=== PATIENT | female | born 1945 | race Caucasian/White ===

== ENCOUNTER 2018-01-05 05:57 | Inpatient (IN) ==
[2018-01-05] MEDS ORDERED: Metoprolol Tartrate 25 MG Tablet PO SCH (07:15)
[2018-01-05] MEDS ORDERED: Chlorhexidine Gluconate 2% 1 Pack (2 Cloths) TOPICAL SCH (07:15)
[2018-01-05] MEDS ORDERED: Vancomycin Inj 1,000 MG in Sodium Chlor 0.9% Inj 250 ML IV.SIG ONE (07:20)
[2018-01-05] MEDS ORDERED: ceFAZolin 2 GM Premix Inj 2 GM/50 ML PIGGYBACK IV.SIG ONE (07:21)
--- NOTE | 2018-01-05 07:47 | P.PNOP ---
Subjective Interval history: POD 0 s/p ORIF left distal femur Physical Exam Narrative: LLE: dressings clean and dry. itnact. NVI Assessment and Plan - Assessment and Plan 1) Left Distal Femur Fx s/p ORIF - POD 0 -NWB -elevate -daily dressing changes POD 2 -CKS at all times except for PT -PROM 0-90deg. -no leg lifts or quad sets -CM for DC planning. SNF likely -f/u with [facility] or [facility] in 2 weeks -patient currently receiving narcotic pain meds from pain management per [employer] database. Was supplied with a 30 day supply of norco 10 on 01/01/18. Will continue to allow pain management to supply pain meds.
[2018-01-05 07:57] LABS: Baso # (Auto) 0.1 th/mm3 (0.0-0.2); Baso % (Auto) 0.7 % (0.0-2.0); Eos # (Auto) 0.4 th/mm3 (0.0-0.4); Eos % (Auto) 5.3 % (0.0-4.0); Hematocrit 40.9 % (35.0-46.0); Lymph # (Auto) 1.7 th/mm3 (1.0-4.8); Lymph % (Auto) 22.8 % (9.0-44.0); Mean Corpuscular HGB Conc 34.3 % (32.0-36.0); Mean Corpuscular Hemoglobin 31.6 pg (27.0-34.0); Mean Corpuscular Volume 91.9 fL (80.0-100.0); Mean Platelet Volume 7.4 fL (7.0-11.0); Mono # (Auto) 0.4 th/mm3 (0.0-0.9); Mono % (Auto) 5.1 % (0.0-8.0); Neut % (Auto) 66.1 % (16.0-70.0); Platelet Count 269 th/mm3 (150-450); Red Blood Count 4.45 mil/mm3 (4.00-5.30); Red Cell Distribution Width 12.9 % (11.6-17.2); White Blood Count 7.6 th/mm3 (4.0-11.0)
[2018-01-05] MEDS ORDERED: Sodium Chlor 0.9% Inj 500 ML IV.SIG SCH (08:00)
[2018-01-05] MEDS ORDERED: Post-op Orders (for Pharmacy) OTHER STA (09:27)
[2018-01-05] MEDS ORDERED: Morphine Inj 4 MG/ML Vial IV.PUSH PRN (09:27)
--- NOTE | 2018-01-05 09:38 | P.OP ---
- Preoperative Diagnosis (1) Closed fracture of lateral condyle of left femur Date of procedure: 01/05/18 Procedure: Open reduction internal fixation left distal femur lateral condyle fracture Anesthesia: GETA Surgeon: Justice Butterfield MD Mica Miner: MINDY Steen PA-C The surgical procedure was assisted by my physician assistant professor of marine biology. My P.A. presence was necessary throughout this case for the manipulation and positioning of the surgical extremity. My P.A. was assisting me throughout the duration of this procedure. The skill set of a physician assistant professor of marine biology was medically necessary to complete this procedure. During the surgical case the surgical elastic knitter hand frame was working at the back table and the physician assistant professor of marine biology was directly assisting me. Operation and Findings: Implants used: Synthes Plan of activity: Nonweightbearing, passive range of motion of knee Details of procedure: Informed consent was obtained, operative site was marked. Patient was brought to the OR, placed on OR table, and given IV sedation with GETA. IV antibiotics were administered and timeout procedure was performed. The operative leg was prepped with alcohol, followed with Hibiclens, draped in usual sterile fashion. A timeout procedure was performed. The procedure began with a 4-inch incision over the lateral aspect of the distal femur. Subcutaneous tissue was dissected with Bovie. Iliotibial band was split in line with fibers. An arthrotomy was created to allow for visualization of the joint line. At this point the fracture was visualized. Traction was applied. The lateral femoral condyle fracture was manipulated and elevated. Fracture was manipulated and reduced into excellent alignment. Steinmann pins were used to hold provisional fixation. 3.5 cortical lag screws were now placed from anterior to posterior. The screws were countersunk to avoid irritation of the patellofemoral joint. Fluoroscopy confirmed excellent alignment of fracture with well-placed screws. At this point attention was turned to plate placement. A Synthes 3.5 was selected and contoured to fit the femur. The plate was placed underneath the vastus lateralis. Steinmann pins were used to hold the plate to bone. Multiplanar fluoroscopy confirmed appropriate placement of plate. Multiple 3.5 cortical screws were now placed. The plate was compressed to bone. Multiple locking screws were now placed in the distal segment of the distal femur. All screws were predrilled and premeasured for appropriate length. Final fluoroscopy revealed excellent alignment of fracture with well-placed hardware. Wound was thoroughly irrigated. Fascia was closed with #1 Vicryl. Subcutaneous tissue was closed with 3-0 Vicryl. Skin was closed with chary. Sterile dressings were applied. The patient was placed into a knee immobilizer and transferred to recovery in stable condition. Needle and sponge counts were correct.
[2018-01-05] MEDS ORDERED: Morphine Sulfate Inj 8 MG/ML Vial ONE (09:54)
[2018-01-05] MEDS: Ketorolac Inj 30 MG/ML (IVP) Vial IV.PUSH SCH ×2 (10:00→22:46)
[2018-01-05] MEDS ORDERED: *Meperidine Inj 25 MG/ML Vial PERIprocedural Use ONLY ONE (10:05)
[2018-01-05] MEDS ORDERED: fentaNYL Citrate Inj 100 MCG/2 ML Ampul ONE (10:13)
[2018-01-05] MEDS ORDERED: *morphine SULFATE 4 MG/ML PERIprocedure ONLY ONE ×2 (10:31→10:53)
--- NOTE | 2018-01-05 10:59 | ECG ---
Date Performed: 01/05/2018 Time Performed: 07:00:47 PTAGE: 72 years EKG: SINUS BRADYCARDIA BORDERLINE ECG Since the PREVIOUS TRACING , no significant change noted PREVIOUS TRACIN09/10/2014 09.44 DOCTOR: Bud Gilman Interpretating Date/Time 01/05/2018 10:57:13
--- NOTE | 2018-01-05 13:34 | XR ---
EXAM DATE: 01/05/2018 12:33 PM EDT AGE/SEX: 72 years / Female INDICATIONS: ORIF of the left distal femur. CLINICAL DATA: This is the patient's initial encounter. Patient reports that signs and symptoms have been present for 1 day and indicates a pain score of Nonresponsive. MEDICAL/SURGICAL HISTORY: Hypertension. Carcinoma, cervical. Hysterectomy. Appendectomy. Ton sillectomy. COMPARISON: No prior exams available for comparison. FINDINGS: Status post internal fixation of the distal femur. The bony structures appear to be in good alignment . The hardware is grossly intact. CONCLUSION: Good position and alignment on this postoperative study. Electronically signed by: Zay Nevarez MD 01/05/2018 1:32 PM EDT
[2018-01-05] MEDS: Calcium/Vitamin D 250/125 MG Tablet PO SCH ×2 (16:58→17:05)
[2018-01-05] MEDS: ceFAZolin 2 GM Premix Inj 2 GM/100 ML BAG IV.SIG SCH (17:21)
[2018-01-05] MEDS ORDERED: Neostigmine Inj 5 MG/5 ML Syringe IV.PUSH ONE (17:59)
[2018-01-05] MEDS ORDERED: Lidocaine PF 1% Inj 5 ML Syringe INFILTRATN ONE (17:59)
[2018-01-05] MEDS ORDERED: Metoprolol Inj 5 MG/5 ML Vial IV.PUSH ONE (17:59)
[2018-01-05] MEDS ORDERED: Phenylephrine/NS 1000 MCG/10ML Syringe IV.PUSH ONE (17:59)
[2018-01-05] MEDS ORDERED: Glycopyrrolate Inj 1 MG/5 ML Syringe IV.PUSH ONE (17:59)
[2018-01-05] MEDS: Vancomycin Inj 1,000 MG in Sodium Chlor 0.9% Inj 250 ML IV.SIG SCH (22:45)
[2018-01-05] MEDS: Senna/Docusate Sodium 8.6/50 MG Tablet PO SCH (22:46)
[2018-01-06] MEDS: ceFAZolin 2 GM Premix Inj 2 GM/100 ML BAG IV.SIG SCH ×3 (01:09→16:04)
--- NOTE | 2018-01-06 06:35 | P.PNOP ---
Subjective Interval history: POD 1 s/p ORIF left distal femur doing well. pain controlled. no complaints. Physical Exam Vital signs: Vital Signs 01/05/18 07:49 01/05/18 09:47 01/05/18 10:00 Temperature 97.5 F L 97.4 F L Pulse Rate 51 L 87 73 Respiratory Rate 18 22 22 Blood Pressure 121/50 L 121/50 L 151/66 H Pulse Oximetry 97 95 100 01/05/18 10:10 01/05/18 10:15 01/05/18 10:30 Temperature Pulse Rate 69 74 Respiratory Rate 10 L 10 L Blood Pressure 134/63 127/60 Pulse Oximetry 96 100 100 01/05/18 10:45 01/05/18 11:00 01/05/18 11:10 Temperature Pulse Rate 74 72 Respiratory Rate 13 18 Blood Pressure 130/62 127/58 L Pulse Oximetry 100 99 96 01/05/18 11:15 01/05/18 11:30 01/05/18 12:00 Temperature 97.4 F L Pulse Rate 48 L 49 L Respiratory Rate 15 15 Blood Pressure 127/58 L 118/57 L Pulse Oximetry 97 98 94 L 01/05/18 16:00 01/05/18 20:00 01/06/18 00:00 Temperature 97.6 F 97.9 F 98.0 F Pulse Rate 58 L 54 L 69 Respiratory Rate 18 17 17 Blood Pressure 112/56 L 99/49 L 100/51 L Pulse Oximetry 93 L 97 95 01/06/18 04:00 Temperature 98.5 F Pulse Rate 81 Respiratory Rate 17 Blood Pressure 108/53 L Pulse Oximetry 96 Intake & Output 01/05/18 01/05/18 01/06/18 06:59 18:59 06:59 Intake Total 1460 / 1460 1350 / 1350 Output Total 100 / 100 Balance 1360 / 1360 1350 / 1350 Weight 73.6 kg Intake: IV 500 / 500 1350 / 1350 LR 1000 mL Inj 1,000 ML @ 80 1000 / 1000 mls/hr IV.CONT .[id number] DON Rx# :[id number] LR 1000 mL Inj 1,000 ML @ 30 500 / 500 mls/hr IV.SIG .Q24H DON Rx#: [id number] Vancomycin Inj 1,000 MG In NS 250 / 250 Inj 250 ML @ 200 mls/hr IV.SIG Q12H DON Rx#:[id number] Ancef 2 GM Premix Inj 2 gm In 100 / 100 100 ml @ 200 mls/hr IV.SIG Q8H DON Rx#:[id number] Oral 960 / 960 Output: Urine 0 / 0 Estimated Blood Loss 100 / 100 Other: Date of Last Bowel Movement 01/04/18 01/04/18 Weight On Admission 73.6 kg Narrative: LLE: dressings clean and dry. intact. NVI. +CKS Results - Labs CBC & Chem 7: 01/05/18 07:34 Laboratory Results - last 24 hr 01/05/18 07:34 WBC 7.6 RBC 4.45 Hgb 14.0 Hct 40.9 MCV 91.9 MCH 31.6 MCHC 34.3 RDW 12.9 Plt Count 269 MPV 7.4 Neut % (Auto) 66.1 Lymph % (Auto) 22.8 [place] % (Auto) 5.1 Eos % (Auto) 5.3 H Baso % (Auto) 0.7 Neut # (Auto) 5.0 Lymph # (Auto) 1.7 [place] # (Auto) 0.4 Eos # (Auto) 0.4 Baso # (Auto) 0.1 WBC Differential . Differential Comment Auto diff final - Imaging Impressions Femur X-Ray 01/05/18 00:00 CONCLUSION: Good position and alignment on this postoperative study. Assessment and Plan - Assessment and Plan 1) Left Distal Femur Fx s/p ORIF - POD 1 -NWB -elevate -daily dressing changes POD 2 -CKS at all times except for PT -PROM 0-90deg. -no leg lifts or quad sets -CM for DC planning. SNF likely. if doing well with therapy, can consider home with [facility] but will likely need SNF -f/u with [facility] or [facility] in 2 weeks -patient currently receiving narcotic pain meds from pain management per [employer] database. Was supplied with a 30 day supply of norco 10 on 01/01/18. Will continue to allow pain management to supply pain meds.
[2018-01-06 07:09] LABS: Hematocrit 35.9 % (35.0-46.0); Hemoglobin 12.1 gm/dL (11.6-15.3)
[2018-01-06] MEDS: Enoxaparin Inj 30 MG/0.3 ML Syringe SQ SCH (09:01)
[2018-01-06] MEDS: amLODIPine 10 MG Tablet PO SCH (09:02)
[2018-01-06] MEDS: Senna/Docusate Sodium 8.6/50 MG Tablet PO SCH ×2 (09:02→21:37)
[2018-01-06] MEDS: Calcium/Vitamin D 250/125 MG Tablet PO SCH ×3 (09:02→18:04)
[2018-01-06] MEDS: Vancomycin Inj 1,000 MG in Sodium Chlor 0.9% Inj 250 ML IV.SIG SCH (09:12)
[2018-01-07] MEDS: ceFAZolin 2 GM Premix Inj 2 GM/100 ML BAG IV.SIG SCH ×2 (00:44→08:43)
[2018-01-07] MEDS: Senna/Docusate Sodium 8.6/50 MG Tablet PO SCH ×2 (10:26→20:48)
[2018-01-07] MEDS: Calcium/Vitamin D 250/125 MG Tablet PO SCH ×3 (10:26→18:08)
[2018-01-07] MEDS: Enoxaparin Inj 30 MG/0.3 ML Syringe SQ SCH (10:26)
[2018-01-07] MEDS: amLODIPine 10 MG Tablet PO SCH (10:26)
--- NOTE | 2018-01-07 13:37 | P.PNOP ---
Subjective Interval history: Left Distal Femur Fx s/p ORIF Pt states her pain is well controlled. Pt is requesting d/c to [facility]. Options were discussed with pt. CM to follow. Physical Exam Vital signs: Vital Signs 01/06/18 16:00 01/06/18 18:26 01/06/18 20:00 Temperature 97.9 F Pulse Rate 72 Respiratory Rate 18 14 14 Blood Pressure 110/54 L Pulse Oximetry 92 L 01/06/18 20:06 01/06/18 22:00 01/06/18 23:14 Temperature 98.0 F 98.4 F Pulse Rate 72 69 Respiratory Rate 18 14 18 Blood Pressure 113/54 L 108/57 L Pulse Oximetry 96 97 01/07/18 03:16 01/07/18 08:00 01/07/18 12:00 Temperature 98.1 F 98.2 F 98.3 F Pulse Rate 60 65 67 Respiratory Rate 18 16 16 Blood Pressure 127/56 L 142/63 H 141/65 H Pulse Oximetry 94 L 92 L 92 L Intake & Output 01/06/18 01/07/18 01/07/18 18:59 06:59 18:59 Intake Total 830 / 830 680 / 680 100 / 100 Balance 830 / 830 680 / 680 100 / 100 Weight 78.1 kg Intake: IV 350 / 350 200 / 200 100 / 100 LR 1000 mL Inj 1,000 ML @ 30 0 / 0 mls/hr IV.SIG .Q24H DON Rx#: [id number] Vancomycin Inj 1,000 MG In NS 250 / 250 Inj 250 ML @ 200 mls/hr IV.SIG Q12H DON Rx#:[id number] Ancef 2 GM Premix Inj 2 gm In 100 / 100 200 / 200 100 / 100 100 ml @ 200 mls/hr IV.SIG Q8H DON Rx#:[id number] Oral 480 / 480 480 / 480 Other: # Voids 3 1 Date of Last Bowel Movement 01/04/18 01/04/18 # Bowel Movements 0 Narrative: Dressing dry and intact. Brace in place. Tender to palpation with mild swelling around incision site. Appropriate range of motion expected post operatively. Freely able to move distal digits. No calf pain. Negative Fatuma's sign. Good cap refill. 2+ pedal pulses. Neurovascular intact. Results - Labs CBC & Chem 7: 01/06/18 04:44 Assessment and Plan - Assessment and Plan 1) Left Distal Femur Fx s/p ORIF - POD 2 -NWB -elevate -start daily dressing changes -CKS at all times except for PT -PROM 0-90deg. -no leg lifts or quad sets -clear for d/c from orthopedic standpoint -CM for DC planning. SNF likely. if doing well with therapy, can consider home with [facility] but will likely need SNF -f/u with [facility] or [facility] in 2 weeks -patient currently receiving narcotic pain meds from pain management per [employer] database. Was supplied with a 30 day supply of norco 10 on 01/01/18. Will continue to allow pain management to supply pain meds.
--- NOTE | 2018-01-08 06:29 | P.DCO ---
- Physical Therapy Physical Therapy: Gait training, Safety evaluation, Transfer training, bed to chair, Wheelchair training Canvas Knee Splint: Remove only with PT Left Lower Extremity Range of Motion: Passive ROM Additional instructions: Non-weightbearing left lower extremity - Occupational Therapy Right Upper Extremity Weight Bearing: Non-weight bearing - Nursing Dressing changes: Daily dressing change - Certification Need for Home Health services: I have seen patient Kelley Acharya on 01/08/18. My clinical findings support the need for the requested home health care services because: Need for Home Health Services: High risk of falls Homebound Certification: I certify that my clinical findings support that this patient is homebound because: Homebound Certification: Post-op weakness
--- NOTE | 2018-01-08 06:32 | P.PNOP ---
Subjective Interval history: Left Distal Femur Fx s/p ORIF - POD 3 Patient was using restroom. She independently ambulated there with walker. Patient continues to express interest in being discharged home and does not want to go to rehab. Patient admits that she has no stairs at home and also has good support. She has a friend and family member to help her. Orthopedics had a serious conversation with her about this and agrees she would be okay to be discharged home with home health care arranged. Physical Exam Vital signs: Vital Signs 01/07/18 08:00 01/07/18 12:00 01/07/18 16:00 Temperature 98.2 F 98.3 F 98.0 F Pulse Rate 65 67 66 Respiratory Rate 16 16 16 Blood Pressure 142/63 H 141/65 H 122/57 L Pulse Oximetry 92 L 92 L 95 01/07/18 20:00 01/08/18 00:00 01/08/18 04:00 Temperature 99.1 F 98.8 F 97.8 F Pulse Rate 70 56 L 73 Respiratory Rate 16 14 16 Blood Pressure 115/55 L 152/70 H 145/66 H Pulse Oximetry 93 L 92 L 95 Intake & Output 01/07/18 01/07/18 01/08/18 06:59 18:59 06:59 Intake Total 680 / 680 900 / 900 480 / 480 Output Total 100 / 100 Balance 680 / 680 900 / 900 380 / 380 Weight 78.1 kg Intake: IV 200 / 200 100 / 100 Ancef 2 GM Premix Inj 2 gm In 200 / 200 100 / 100 100 ml @ 200 mls/hr IV.SIG Q8H COUNTS INCLUDE 234 BEDS AT [facility] Rx#:[id number] Oral 480 / 480 800 / 800 480 / 480 Output: Urine 100 / 100 Other: # Voids 1 6 4 Date of Last Bowel Movement 01/04/18 01/07/18 # Bowel Movements 0 0 1 Narrative: Dressing dry and intact. Brace in place. Tender to palpation with mild swelling around incision site. Appropriate range of motion expected post operatively. Freely able to move distal digits. No calf pain. Negative Fatuma's sign. Good cap refill. 2+ pedal pulses. Neurovascular intact. Results - Labs CBC & Chem 7: 01/06/18 04:44 - Imaging Femur X-Ray 01/05/18 00:00 CONCLUSION: Good position and alignment on this postoperative study. - Procedures Left Distal Femur Fx s/p ORIF Assessment and Plan - Assessment and Plan 1) Left Distal Femur Fx s/p ORIF - POD 3 -NWB -elevate -daily dressing changes -CKS at all times except for PT -PROM 0-90deg. -no leg lifts or quad sets -clear for d/c from orthopedic standpoint -clear for d/c to home with [facility] per pt request -f/u with [facility] or [facility] in 2 weeks -patient currently receiving narcotic pain meds from pain management per [employer] database. Was supplied with a 30 day supply of norco 10 on 01/01/18. Will continue to allow pain management to supply pain meds.
[2018-01-08] MEDS: amLODIPine 10 MG Tablet PO SCH (08:17)
[2018-01-08] MEDS: Senna/Docusate Sodium 8.6/50 MG Tablet PO SCH (08:17)
[2018-01-08] MEDS: Calcium/Vitamin D 250/125 MG Tablet PO SCH ×2 (08:18→12:41)
[2018-01-08] MEDS: Enoxaparin Inj 30 MG/0.3 ML Syringe SQ SCH (08:18)
[2018-01-08 11:12] VITALS: O2SAT 94
[2018-01-08 14:17] VITALS: BP 127/60; PULSE 73; RESP 16; TEMP 98
--- NOTE | 2018-02-02 17:18 | P.DS ---
Date of admission: 01/05/18 12:34 Primary care physician: Jas Rosales MD Attending physician on discharge: Justice Lei Brief History from admission: Kelley is a 73-year-old female who had suffered a left distal femur lateral condyle fracture. Due to the displacement of the fracture she was scheduled for surgery for open reduction internal fixation with Dr. Lei. after being cleared medically she was admitted to [facility] for open reduction internal fixation. DS: Diagnosis - Discharge Diagnosis (1) Closed fracture of lateral condyle of left femur Status: Acute DS: Medications - Discharge Medications Prescriptions: rivaroxaban [Xarelto] 10 mg PO DAILY #14 tab DS: Summary Hospital Course: Kelley was admitted same-day surgery. She was taken to the operating room and open reduction and fixation of her distal femur was performed without any complications. She was transferred PACU. Pain was controlled and she remained hemodynamically stable. She was transferred to [address] [place] [address]. After doing well with physical therapy she was discharged to home with home health care. Home health care is arranged. - Time Spent with Patient Total time spent providing and/or coordinating discharge services: Greater than 30 minutes - Quality: VTE Deep Vein Thrombosis/Pulmonary Embolism Present on Admission: No Exam - Constitutional no acute distress - Routine HEENT Exam Head: Present: normocephalic, atraumatic - Routine Respiratory Exam Absent: accessory muscle use - Routine Extremities Exam Comments: left lower extremity: Tender dressings intact with knee immobilizer in place. She has intact sensation distally with active dorsiflexion and plantar flexion of foot Results Procedures completed during hospitalization: Left Distal Femur Fx s/p ORIF - Impressions ITS Impressions Femur X-Ray 01/05/18 00:00 CONCLUSION: Good position and alignment on this postoperative study. Discharge Plan - Discharge Disposition Patient Disposition: Disch W/Home Health Service - Discharge Condition Condition: Good - Discharge Order Discharge Orders: Discharge Order (Routine); Ordered 01/08/18 Ordered By: Mery Ross ([place]ley) - Physicians Team Primary Care Provider: Jas Rosales Attending Provider: Justice Lei Other Providers: Tay Cross ; [facility],[place] - Rxs /Orders / Referrals /Forms Prescriptions: New rivaroxaban [Xarelto] 10 mg Tablet 10 mg PO DAILY Qty: 14 RF: 0 Continue amlodipine 10 mg Tablet 10 mg PO DAILY aspirin 81 mg Tablet,Chewable 81 mg PO DAILY Ambulatory Orders / Order Sets / DME: Walker With Front Wheels (1 each) (Routine) Location: Determined by Patient Ordered By: Jamil Kern Wheelchair (1 each) (Routine) Location: Determined by Patient Ordered By: Jamil Kern Referrals: [facility] [Outside] - See Instructions Jas Rosales MD [Primary Care Provider] - See Instructions Justice Lei MD [Physician] - See Instructions (2 weeks) - Discharge Instructions Patient Printed Instructions: Laxative, Stool Softeners (By mouth), Rivaroxaban (By mouth), ORIF of a Leg Fracture (DC), How to Choose and Use a Walker (GEN), How to Choose and Use a Wheelchair (GEN), Narcotic Pain Management (DC), Fall Prevention (DC), Knee Immobilizer (DC) Additional Instructions: Keep or make your follow up appointments as directed by your providers. Follow up with orthopedics within 2 weeks. Take medications as directed. Stool softener use encouraged while taking narcotic pain medications. Keep surgical incision site clean and dry. Maintain non-weight bearing status with CKS brace in place at all times except during physical therapy.
== END 2018-01-08 18:00 | disposition home health service (06) ==
LOC: HSDC 05:57 → EDSTATUS 08:30 → N06 12:34
PROVIDERS: ADMIT Orthopaedic Surgery Orthopaedic Trauma; ATTEND Orthopaedic Surgery Orthopaedic Trauma